=== PATIENT | female | born 1970 | race Caucasian/White ===

== ENCOUNTER 2019-11-13 13:30 | Emergency (ER) | payer OTHER ==
[~2019-11-13] VITALS: Ht 172.7 cm; Wt 102.0 kg
--- NOTE | 2019-11-13 13:47 | NUR ---
PT WAS BIB [facility] FOR FEELING DIZZY, SOB, BODY ACHES, SORE THROAT. PT HAD RECENTLY TRAVELED TO [place] FROM [place]OCT [place]. INFECTION NURSE HAS BEEN CALLED AND SPOKEN WITH PT. PT HAS BEEN PLACED IN A NEGATIVE PRESSURE ROOM WITH THE PAPR AND INFECTION CONTROL CARTS OUTSIDE OF ROOM. FLU SWAB SENT TO LAB. BLANKETS PROVIDED.
[2019-11-13] MEDS ORDERED: MECLIZINE CHEWABLE 25 MG TAB ONE (14:23)
[2019-11-13 14:27] LABS: RAPID INFLUENZA A Negative (Negative); RAPID INFLUENZA B Negative (Negative)
[2019-11-13] MEDS ORDERED: MECLIZINE CHEWABLE 25 MG TAB PO ONE (14:30)
[2019-11-13 14:43] LABS: BASOPHILS # (AUTO) 0.02 x10^3/uL (0-0.1); BASOPHILS % (AUTO) 0 % (0-1); EOSINOPHILS # (AUTO) 0.01 x10^3/uL (0-0.4); EOSINOPHILS % (AUTO) 0 % (1-7); LYMPHOCYTES # (AUTO) 0.89 x10^3/uL (1-3.4); LYMPHOCYTES % (AUTO) 12 % (22-44); MD NO; MEAN CORPUSCULAR HEMOGLOBIN 31.5 pg (27.0-34.8); MEAN CORPUSCULAR HGB CONC 33.5 g/dL (32.4-35.8); MEAN PLATELET VOLUME 9.4 fL (7.4-10.4); MONOCYTES # (AUTO) 0.37 x10^3/uL (0.2-0.8); MONOCYTES % (AUTO) 5 % (2-9); NEUTROPHILS % (AUTO) 82 % (42-75); PLATELET COUNT 182 x10^3/uL (130-400); RED BLOOD COUNT 4.57 x10^6/uL (3.82-5.3); RED CELL DISTRIBUTION WIDTH 13.7 % (9.6-15.2)
[2019-11-13 14:52] LABS: ALBUMIN 3.6 g/dL (3.4-5.0); ANION GAP 9 mmol/L (5-15); CALCIUM 8.6 mg/dL (8.5-10.1); CHLORIDE 106 mmol/L (98-107); CREATININE 0.88 mg/dL (0.55-1.02)
[2019-11-13 15:58] VITALS: BP 177/97
== END 2019-11-13 16:18 ==
LOC: ED 14:44
DX: R42 Dizziness and giddiness (principal); R00.0 Tachycardia, unspecified; I51.7 Cardiomegaly
CPT/HCPCS: 36415; 80048; 82040; 85025; 87400; 93005; 99284